=== PATIENT | male | born 1940 | race Caucasian/White ===

== ENCOUNTER 2017-01-23 19:07 | Observation (INO) | payer MEDICARE, BC ==
[~2017-01-23] VITALS: Wt 81.4 kg
[2017-01-23 20:00] LABS: BASO % 0.3 % (0.0-2.0); EOS # 0.1 (0.0-0.7); EOS % 0.4 % (0-4.0); GRAN # 14.6 (1.4-6.5); GRAN % 91.2 % (42.2-75.2); HEMATOCRIT 43.1 % (42.0-52.0); HEMOGLOBIN 14.8 g/dl (13.5-18.0); LYMPH # 0.4 (1.2-3.4); LYMPH % 2.3 % (20.0-51.0); MEAN CELL VOLUME 89 fl (80.0-100.0); MEAN CORPUSCULAR HEMOGLOBIN 31 pg (27.0-31.0); MEAN CORPUSCULAR HGB CONC 34 g/dl (33.0-37.0); MEAN PLATELET VOLUME 9.6 fl (7.4-10.4); MONO # 0.9 (0.1-0.6); MONO % 5.3 % (1.7-9.3); PLATELET COUNT 131 K/mm3 (130-400); RED BLOOD COUNT 4.82 M/mm3 (4.20-5.60)
[2017-01-23 20:18] LABS: ADJUSTED CALCIUM 9.8 mg/dL (8.4-10.2); ALBUMIN 3.4 gm/dL (3.5-5.0); BILIRUBIN,TOTAL 0.6 mg/dL (0.0-1.0); CALCIUM 9.3 mg/dL (8.4-10.2); CREATININE, serum 1.25 mg/dL (0.66-1.25); POTASSIUM 3.7 mmol/L (3.4-5.0); TOTAL PROTEIN 5.5 gm/dL (6.4-8.2)
[2017-01-23 20:27] LABS: INFLUENZA A NEGATIVE; INFLUENZA B NEGATIVE
[2017-01-23 21:27] LABS: COLLECTION METHOD CLEAN CATCH
[2017-01-23 21:33] LABS: MUCOUS Present /lpf; PH 5 (5-8); SQUAMOUS EPITHELIAL None Seen /hpf; URINE APPEARANCE Clear; URINE BACTERIA None Seen /hpf; URINE BILIRUBIN Negative (NEGATIVE); URINE BLOOD Negative (NEGATIVE); URINE COLOR Yellow; URINE GLUCOSE Negative (NEGATIVE); URINE KETONE Trace (NEGATIVE); URINE LEUKOCYTE ESTERASE Negative (NEGATIVE); URINE PROTEIN(semi-quant) Negative (NEGATIVE); URINE RBC 0-2 /hpf; URINE UROBILINOGEN Negative (NEGATIVE); URINE WBC 0-2 /hpf
[2017-01-23] MEDS ORDERED: FLOMAX 0.40.4 MG/CAP PO (23:28)
[2017-01-23] MEDS ORDERED: PROTONIX 40MG T40 MG PO (23:28)
[2017-01-23] MEDS ORDERED: ZOCOR 20MG20 MG PO (23:28)
[2017-01-23] MEDS ORDERED: LUMIGAN 2.5 ML2.5 M1 OP (23:29)
[2017-01-23] MEDS ORDERED: ASPIRIN 81M81 MG/TA2 PO (23:29)
[2017-01-23] MEDS ORDERED: OSTEO-BI-FLEX 21 TAB PO (23:30)
[2017-01-23] MEDS ORDERED: VITAMIN B650 MG PO (23:31)
[2017-01-23] MEDS ORDERED: B-121000 MCG PO (23:31)
[2017-01-23] MEDS ORDERED: NATURAL E400 IU PO (23:32)
[2017-01-23] MEDS ORDERED: VITAMIN D31000 I1 PO (23:32)
[2017-01-24 01:03] VITALS: BP 107/52; PULSE 82; TEMP 97.8
[2017-01-24 02:51] VITALS: BP 116/59; PULSE 80; TEMP 97.8
[2017-01-24 07:05] LABS: HEMATOCRIT 39.1 % (42.0-52.0); HEMOGLOBIN 13.3 g/dl (13.5-18.0); MEAN CELL VOLUME 92 fl (80.0-100.0); MEAN CORPUSCULAR HEMOGLOBIN 31 pg (27.0-31.0); MEAN CORPUSCULAR HGB CONC 34 g/dl (33.0-37.0); MEAN PLATELET VOLUME 10.3 fl (7.4-10.4); PLATELET COUNT 131 K/mm3 (130-400); RED BLOOD COUNT 4.25 M/mm3 (4.20-5.60)
[2017-01-24 07:10] LABS: ADD PATHOLOGY DIFF REVIEW NO; WHITE BLOOD COUNT 22.1 K/mm3 (4.8-10.8)
[2017-01-24 07:11] LABS: CALCIUM 8.4 mg/dL (8.4-10.2); CREATININE, serum 1.34 mg/dL (0.66-1.25)
[2017-01-24 07:33] VITALS: BP 113/58; PULSE 85; TEMP 97.4
[2017-01-24 08:03] LABS: BAND 34 % (0-10); LYMPHOCYTE 4 % (20.0-51.0); NEUTROPHILS 59 % (42.0-75.2); TOTAL CELLS COUNTED 100
[2017-01-24 08:04] LABS: PLATELET ESTIMATE NORMAL (NORMAL)
[2017-01-24 11:02] VITALS: BP 127/63; PULSE 77; TEMP 98.8
[2017-01-24 15:19] VITALS: BP 117/61; PULSE 106; TEMP 98.5
[2017-01-24 19:23] VITALS: BP 124/58; PULSE 103; TEMP 99.3
[2017-01-25 00:02] VITALS: BP 137/68; PULSE 77; TEMP 98.5; TEMP 99
[2017-01-25 03:32] VITALS: BP 143/75; PULSE 83; TEMP 98.7
[2017-01-25 06:53] LABS: BASO # 0.1 (0.0-0.2); BASO % 0.4 % (0.0-2.0); EOS # 0.2 (0.0-0.7); EOS % 1.3 % (0-4.0); GRAN # 13.4 (1.4-6.5); GRAN % 85.7 % (42.2-75.2); HEMATOCRIT 37.2 % (42.0-52.0); HEMOGLOBIN 12.7 g/dl (13.5-18.0); LYMPH # 0.9 (1.2-3.4); LYMPH % 5.8 % (20.0-51.0); MEAN CELL VOLUME 91 fl (80.0-100.0); MEAN CORPUSCULAR HEMOGLOBIN 31 pg (27.0-31.0); MEAN CORPUSCULAR HGB CONC 34 g/dl (33.0-37.0); MEAN PLATELET VOLUME 10.1 fl (7.4-10.4); MONO % 6.2 % (1.7-9.3); PLATELET COUNT 135 K/mm3 (130-400); RED BLOOD COUNT 4.09 M/mm3 (4.20-5.60); WHITE BLOOD COUNT 15.7 K/mm3 (4.8-10.8)
[2017-01-25 07:14] LABS: CALCIUM 8.6 mg/dL (8.4-10.2); CREATININE, serum 1.27 mg/dL (0.66-1.25); POTASSIUM 3.6 mmol/L (3.4-5.0)
[2017-01-25 07:52] VITALS: BP 154/80; PULSE 73; TEMP 98.5
[2017-01-25] MEDS ORDERED: ZITHROMAX500 M2 PO (10:22)
[2017-01-25] MEDS ORDERED: CLEOCIN HCL300 MG PO (10:22)
[2017-01-25 11:16] VITALS: BP 130/76; PULSE 74; TEMP 98.2
[2017-01-25 17:00] LABS: IMMUNOGLOBULIN A 12 mg/dL (101-645); IMMUNOGLOBULIN G <340 mg/dL (540-1822); IMMUNOGLOBULIN M, QUANTITATIVE 13 mg/dL (22-240)
== END 2017-01-25 12:37 | disposition home or self-care (01) ==
LOC: COL.ER 19:07 → MEDICAL 23:45
PROVIDERS: Internal Medicine; Nurse Practitioner; Physician Assistant
DX: J18.9 Pneumonia, unspecified organism (principal); D72.825 Bandemia; E78.5 Hyperlipidemia, unspecified; K21.9 Gastro-esophageal reflux disease without esophagitis; N40.0 Benign prostatic hyperplasia without lower urinary tract symptoms; I51.7 Cardiomegaly; Z85.6 Personal history of leukemia; Z83.3 Family history of diabetes mellitus; Z80.8 Family history of malignant neoplasm of other organs or systems; Z80.0 Family history of malignant neoplasm of digestive organs
CPT/HCPCS: 99223-AI; G0378; G8987-GO; G8988-GO; J0456; J0696; J1650; J2543; J7030; J7050; Q9967

== ENCOUNTER → 2017-05-07 | Outpatient (CLI) | payer MEDICARE, BC ==
[~2017-05-07] MED LIST: ASPIRIN 81M81 MG/TA2 PO; B-121000 MCG PO; CLEOCIN HCL300 MG PO; FLOMAX 0.40.4 MG/CAP PO; LUMIGAN 2.5 ML2.5 M1 OP; NATURAL E400 IU PO; OSTEO-BI-FLEX 21 TAB PO; PROTONIX 40MG T40 MG PO; VITAMIN B650 MG PO; VITAMIN D31000 I1 PO; ZITHROMAX500 M2 PO; ZOCOR 20MG20 MG PO
[2017-05-07 14:58] LABS: BASO % 0.5 % (0.0-2.0); EOS # 0.1 (0.0-0.7); EOS % 1.4 % (0-4.0); GRAN % 78.8 % (42.2-75.2); HEMATOCRIT 45.2 % (42.0-52.0); HEMOGLOBIN 15.1 g/dl (13.5-18.0); LYMPH # 1.1 (1.2-3.4); MEAN CELL VOLUME 91 fl (80.0-100.0); MEAN CORPUSCULAR HEMOGLOBIN 30 pg (27.0-31.0); MEAN CORPUSCULAR HGB CONC 33 g/dl (33.0-37.0); MONO # 0.6 (0.1-0.6); PLATELET COUNT 154 K/mm3 (130-400); RED BLOOD COUNT 4.99 M/mm3 (4.20-5.60); REDCELL DISTRIBUTION WIDTH-CV 13.9 % (11.5-14.5)
== END ==
LOC: COL.LAB 14:34
PROVIDERS: Internal Medicine Pulmonary Disease
DX: R05 Cough (principal)

== ENCOUNTER → 2018-12-06 | Outpatient (CLI) | payer MEDICARE, BC | LOC: COL.RAD 08:21 | DX: C37 Malignant neoplasm of thymus (principal); K44.9 Diaphragmatic hernia without obstruction or gangrene | CPT/HCPCS: Q9967 ==

== ENCOUNTER 2018-12-23 10:00 | Outpatient (RCR) | payer MEDICARE, BC | END 2018-12-25 | disposition home or self-care (01) | LOC: WSST | DX: G31.84 Mild cognitive impairment of uncertain or unknown etiology (principal) ==

== ENCOUNTER 2019-03-27 15:36 | Outpatient (RCR) | payer MEDICARE, BC | END 2019-06-25 | disposition home or self-care (01) | LOC: WSST | DX: G31.84 Mild cognitive impairment of uncertain or unknown etiology (principal) ==

== ENCOUNTER 2020-09-06 12:34 | Outpatient (RCR) | payer MEDICARE, BC | END 2020-12-05 | disposition home or self-care (01) | LOC: WSST | DX: R41.841 Cognitive communication deficit (principal) ==

== ENCOUNTER 2021-01-22 00:15 | Emergency (ER) | payer MEDICARE, BC ==
[~2021-01-22] VITALS: Ht 177.8 cm; Wt 77.7 kg
[2021-01-22 00:21] VITALS: TEMP 98.4
[2021-01-22 01:06] LABS: COLLECTION METHOD CLEAN CATCH
[2021-01-22 01:09] LABS: BASO % 0.6 % (0.0-2.0); GRAN # 4.5 K/mm3 (1.4-6.5); GRAN % 67.6 % (42.2-75.2); HEMATOCRIT 44.1 % (42.0-52.0); HEMOGLOBIN 15.3 g/dl (13.5-18.0); LYMPH # 1.4 K/mm3 (1.2-3.4); LYMPH % 21.3 % (20.0-51.0); MEAN CELL VOLUME 90 fl (80.0-100.0); MEAN CORPUSCULAR HEMOGLOBIN 31 pg (27.0-31.0); MEAN CORPUSCULAR HGB CONC 35 g/dl (33.0-37.0); MONO # 0.7 K/mm3 (0.1-0.6); MONO % 10.2 % (1.7-9.3); PLATELET COUNT 162 K/mm3 (130-400); REDCELL DISTRIBUTION WIDTH-CV 13.1 % (11.5-14.5)
[2021-01-22 01:12] LABS: PH 7 (5-8); SQUAMOUS EPITHELIAL None Seen /hpf (0-10); URINE APPEARANCE Clear (CLEAR/HAZY); URINE BACTERIA None Seen (NONE SEEN); URINE BILIRUBIN Negative (NEGATIVE); URINE BLOOD Negative (NEGATIVE); URINE COLOR Straw (YELLOW); URINE GLUCOSE Negative (NEGATIVE); URINE KETONE Negative (NEGATIVE); URINE LEUKOCYTE ESTERASE Negative (NEGATIVE); URINE NITRATE Negative (NEGATIVE); URINE PROTEIN(semi-quant) Negative (NEGATIVE); URINE RBC 0-2 /hpf (0-2); URINE UROBILINOGEN Negative (NEGATIVE)
[2021-01-22 01:27] LABS: ALANINE AMINOTRANSFERASE 20 U/L (0-55); ALBUMIN 3.5 gm/dL (3.4-4.8); ALKALINE PHOSPHATASE 108 U/L (40-150); ANION GAP 10 mmol/L (7-16); AST,SGOT 28 U/L (5-34); BILIRUBIN,TOTAL 0.3 mg/dL (0.2-1.2); BLOOD UREA NITROGEN 21 mg/dL (8-26); CALCIUM 9.3 mg/dL (8.4-10.2); CARBON DIOXIDE 20 mmol/L (23-31); CHLORIDE 112 mmol/L (98-107); GLUCOSE 120 mg/dL (70-99); POTASSIUM 3.9 mmol/L (3.5-4.5); SODIUM 142 mmol/L (136-145); TOTAL PROTEIN 6.5 gm/dL (6.2-8.1)
[2021-01-22 01:33] LABS: TROPONIN-I < 0.010 ng/mL (0.00-0.033)
[2021-01-22] MEDS ORDERED: ANTIVERT 25MG25 MG PO (02:52)
[2021-01-22 03:22] VITALS: BP 168/106; PULSE 67
== END 2021-01-22 03:22 | disposition home or self-care (01) ==
LOC: COL.ER 00:15
PROVIDERS: Physician Assistant
DX: R42 Dizziness and giddiness (principal); I10 Essential (primary) hypertension; K21.9 Gastro-esophageal reflux disease without esophagitis; N40.0 Benign prostatic hyperplasia without lower urinary tract symptoms; Z79.899 Other long term (current) drug therapy
CPT/HCPCS: J2405; J7030

== ENCOUNTER → 2022-06-22 | Outpatient (CLI) | payer MEDICARE, BC ==
[~2022-06-22] MED LIST changes: +ANTIVERT 25MG25 MG PO
== END ==
LOC: COL.RAD 15:36
DX: E04.1 Nontoxic single thyroid nodule (principal); D80.1 Nonfamilial hypogammaglobulinemia

== ENCOUNTER → 2022-07-04 | Outpatient (CLI) | payer MEDICARE, BC ==
[~2022-07-04] VITALS: Ht 177.8 cm; Wt 77.0 kg
[~2022-07-04] MED LIST changes: +AVAPRO TAB150 MG/TAB PO; +BETIMOL 0.5% OPH5 ML OU; +NAMENDA5 MG PO; +NASACORT OTC NS; +NORVASC 5MG5 MG/TAB PO
[2022-07-04 09:54] VITALS: BP 145/85; PULSE 54; TEMP 97.5
[2022-07-04 10:55] VITALS: BP 161/90; PULSE 53
== END ==
LOC: COL.RAD 08:41
DX: E04.1 Nontoxic single thyroid nodule (principal); D80.1 Nonfamilial hypogammaglobulinemia; C37 Malignant neoplasm of thymus

== ENCOUNTER → 2023-11-12 | Outpatient (CLI) | payer MEDICARE, BC ==
[~2023-11-12] MED LIST changes: +Albuterol 0.083% Neb Soln 2.5 MG/3 ML UD IH ONE
== END ==
LOC: COL.CARD 07:45
DX: D84.89 Other immunodeficiencies (principal)